=== PATIENT | female | born 1995 | race African-American/Black ===

== ENCOUNTER 2019-02-01 21:03 | Emergency (ER) | payer BC, OTHER ==
[2019-02-01 21:14] VITALS: BP 125/80; PULSE 69
--- NOTE | 2019-02-01 21:28 | EDM.PDOC ---
ED HPI GENERAL MEDICAL PROBLEM - General Chief Complaint: Headache Stated Complaint: FELL AT WORK HIT HEAD Time Seen by Provider: 02/01/19 21:15 Source of Information: Reports: Patient History Limitations: Reports: No Limitations - History of Present Illness INITIAL COMMENTS - FREE TEXT/NARRATIVE: This is a 23-year-old female. She states she's been having daily headaches in the front part of her head not in the back part of her head. She describes it as pounding sensation that is unrelenting. She apparently had onset of headache about 10 AM this morning she went to work and around 2 PM she got dizzy and fell at work but she did not hit her head and there was no loss of consciousness. She admits taking some ibuprofen but really hasn't been helping. He states she is really stressed out. She states feels like her headaches are getting more frequent and more severe. She has no history of allergies. She denies any upper respiratory symptoms or sore throat. She does have mild photosensitivity. Right Headache Pain Score (Numeric/FACES): 8 - Related Data Allergies Allergy/AdvReac Type Severity Reaction Status Date / Time No Known Allergies Allergy Verified 11/04/14 23:11 Home Meds: Home Meds Ibuprofen [Motrin] 400 mg PO ASDIRECTED PRN 11/04/14 [History] Past Medical History - Past Health History Medical/Surgical History: Denies Medical/Surgical History ED ROS GENERAL - Review of Systems Review Of Systems: See Below Constitutional: Denies: Fever, Chills HEENT: Denies: Rhinitis, Sinus Problem, Throat Swelling Respiratory: Denies: Shortness of Breath, Cough Cardiovascular: Denies: Chest Pain Endocrine: Reports: No Symptoms GI/Abdominal: Denies: Abdominal Pain, Nausea, Vomiting : Reports: No Symptoms Musculoskeletal: Reports: No Symptoms Skin: Reports: No Symptoms Neurological: Reports: Headache Psychiatric: Reports: No Symptoms Hematologic/Lymphatic: Reports: No Symptoms - Physical Exam Exam: See Below Exam Limited By: No Limitations General Appearance: Alert, WD/WN, Mild Distress, Other (Patient is holding the palm of her hand on her for head and doesn't want to let it go, she is crying as well, she is keeping her eyes closed at all times and was reluctant to let me even look at her eyes) Eye Exam: Bilateral Eye: Normal Inspection (Mildly photosensitive all pupils are equal and reactive) Ears: Normal External Exam, Normal Canal, Normal TMs Nose: Normal Inspection Throat/Mouth: Normal Inspection, Normal Lips, Normal Voice, No Airway Compromise Head Exam: Normocephalic Neck: Supple, Non-Tender Respiratory/Chest: No Respiratory Distress, Lungs Clear, Normal Breath Sounds Cardiovascular: Regular Rate, Rhythm, No Murmur GI/Abdominal: Soft, Non-Tender Neuro Exam (Abbreviated): Alert, Oriented, CN II-XII Intact, No Motor/Sensory Deficits Back Exam: Normal Inspection, Full Range of Motion Extremities: Normal Inspection, Normal Range of Motion Psychiatric: Normal Affect, Normal Mood Skin Exam: Warm, Dry Course - Vital Signs Last Recorded V/S: Last Vital Signs Temp 97.8 F 02/01/19 21:13 Pulse 69 02/01/19 21:13 Resp 20 02/01/19 21:13 BP 125/80 02/01/19 21:13 Pulse Ox 100 02/01/19 21:13 - Orders/Labs/Meds Orders: Active Orders 24 hr Category Date Time Status Head wo Cont [CT] Stat Exams 02/01/19 21:28 Taken Sodium Chloride 0.9% [Normal Saline] 1,000 ml Med 02/01/19 21:30 Active IV ASDIRECTED Medication Orders Sodium Chloride (Normal Saline) 1,000 mls @ 1,000 mls/hr IV ASDIRECTED STEPHANIE Last Admin: 02/01/19 22:02 Dose: 1,000 mls/hr Meds: Medications Generic Name Dose Route Start Last Admin Trade Name Freq PRN Reason Stop Dose Admin Sodium Chloride 1,000 mls @ 1,000 mls/hr 02/01/19 21:30 02/01/19 22:02 Normal Saline IV 1,000 mls/hr ASDIRECTED STEPHANIE Administration Discontinued Medications Generic Name Dose Route Start Last Admin Trade Name Freq PRN Reason Stop Dose Admin Diphenhydramine HCl 50 mg 02/01/19 21:29 02/01/19 22:03 Benadryl IVPUSH 02/01/19 21:30 50 mg ONETIME ONE Administration Lorazepam 0.5 mg 02/01/19 21:29 02/01/19 22:05 Ativan IVPUSH 02/01/19 21:30 0.5 mg ONETIME ONE Administration Ondansetron HCl 4 mg 02/01/19 21:29 02/01/19 22:03 Jesusita IVPUSH 02/01/19 21:30 4 mg ONETIME ONE Administration - Radiology Interpretation Free Text/Narrative:: CT scan of the head does not show any acute intracranial abnormalities - Re-Assessments/Exams Free Text/Narrative Re-Assessment/Exam: 02/01/19 22:15 Spoke to the patient and the family regarding the CAT scan that it was completely normal. The patient is feeling some better with the medications. 02/01/19 22:26 The patient is now telling the nurse and me that she is very stressed out and anxious. It is affecting how she works and her activities but she is not bothered to find a family physician to help her at this time. I will refer her to a family physician for help. The medications have made her headache feel better. 02/01/19 23:45 I spoke to the patient's parents as well targeted them about going to [facility] to help with her anxiety and stress and they have a walk-in at 8 AM on Sunday that she can be seen. I'm also going to give her off work through Sunday so she can go and get some help. She is going to go home and sleep as much as she can. She is to follow-up with a primary care provider. Departure - Departure Time of Disposition: 23:46 Disposition: Home, Self-Care 01 Condition: Good Clinical Impression: Generalized anxiety disorder, Situational stress Headache Qualifiers: Headache type: unspecified Headache chronicity pattern: acute headache Intractability: not intractable Qualified Code(s): R51 - Headache - Discharge Information *PRESCRIPTION DRUG MONITORING PROGRAM REVIEWED*: Not Applicable *COPY OF PRESCRIPTION DRUG MONITORING REPORT IN PATIENT ALETHEA: Not Applicable Instructions: Generalized Anxiety Disorder, Adult, Migraine Headache, Easy-to- Read Referrals: Milana Ferguson PA-C [Physician Medical Affairs Leader] - Forms: ED Department Discharge, ED Return to Work/School Form Additional Instructions: When you go home continue to sleep as long as you can tomorrow, I'll give you a note to be absent from work through Sunday so that you can go to [facility] and be seen at 8 AM as a walk-in to help with your anxiety and your stress, follow up with a primary care provider or possible medications for your anxiety and stress, return to the ER if needed - My Orders Last 24 Hours: My Active Orders 02/01/19 21:28 Head wo Cont [CT] Stat 02/01/19 21:30 Sodium Chloride 0.9% [Normal Saline] 1,000 ml IV ASDIRECTED - Assessment/Plan Last 24 Hours: My Active Orders 02/01/19 21:28 Head wo Cont [CT] Stat 02/01/19 21:30 Sodium Chloride 0.9% [Normal Saline] 1,000 ml IV ASDIRECTED
[2019-02-01] MEDS ORDERED: LORazepam 2 MG/ML SDV IVPUSH ONE (21:29)
[2019-02-01] MEDS ORDERED: diphenhydrAMINE 50 MG/ML SDV IVPUSH ONE (21:29)
[2019-02-01] MEDS ORDERED: Ondansetron 4 MG/2 ML SDV IVPUSH ONE (21:29)
[2019-02-01] MEDS ORDERED: Sodium Chloride 0.9% 1,000 ML IV SCH (21:30)
--- NOTE | 2019-02-03 06:32 | CT ---
Head CT Technique: Multiple axial sections through the brain were obtained. Intravenous contrast was not utilized. Comparison: No prior intracranial imaging is available. Findings: Soft tissue injury with skin flaco noted within the frontal scalp and within both lateral sides of the scalp. Ventricles along with basal cisterns and sulci over the convexities appear within normal limits. No abnormal parenchymal densities are seen. No evidence of intracranial hemorrhage. No midline shift or mass effect is seen. Mastoid sinuses are clear. Visualized paranasal sinuses are clear. No acute calvarial abnormality is seen. Impression: 1. Soft tissue injury with skin flaco in 3 locations within the scalp. 2. No acute intracranial abnormality is identified. Diagnostic code #2 This report was dictated in [place] Standard Time I agree with preliminary report from [facility], finalized on 02/01/19, 11:02 PM Central Time
== END 2019-02-02 00:40 | disposition home or self-care (01) ==
LOC: JD.ED 21:03
DX: R51 Headache (principal); F41.1 Generalized anxiety disorder; F43.9 Reaction to severe stress, unspecified
CPT/HCPCS: 70450; 96361; 96374; 96375; 99284; J1200; J2060; J2405; J7030